=== PATIENT | female | born 1940 | race Caucasian/White ===

== ENCOUNTER 2020-11-16 10:53 | Day surgery (SDCO) | payer OTHER ==
[~2020-11-16] VITALS: Ht 165.1 cm; Wt 61.9 kg
[~2020-11-16 10:53] MED LIST: ASPIRIN EC81 MG PO; DUONEB 2.5-0.5M1 AMP INH; LIPITOR40 M1 PO; TOPROL XL 25MG25 MG PO; VENTOLIN HFA IN18 GM INH
[2020-11-16 13:07] LABS: BASOPHIL 0.9 % (0-2); EOSINOPHIL 1.1 % (0-7); HCT 40.8 % (37.0-47.0); HGB 13.3 g/dl (12.5-16.0); LYMPHOCYTE 25.9 % (15-48); MCH 30.3 pg (25.0-31.0); MCHC 32.6 g/dL (32.0-36.0); MCV 92.9 fL (78.0-100.0); MONOCYTE 9.8 % (0-12); MPV 10.6 fL (6.0-9.5); NEUTROPHIL 62.2 % (41-80); NRBC 0; PLT 195 K/uL (150-400); RBC 4.39 M/uL (4.20-5.40); RDW 12.8 % (11.5-14.0); WBC 7.8 K/uL (4.0-10.5)
[2020-11-16 13:38] LABS: ALBUMIN 3.7 g/dL (3.4-5.0); BILIRUBIN - TOTAL 0.8 mg/dL (0.2-1.0); BUN/CREAT RATIO (CALC) 14.9 RATIO; CREATININE 0.94 mg/dL (0.51-0.95); GLOBULIN (CALCULATION) 3.1 g/dL; POTASSIUM 4.7 mmol/L (3.5-5.1); TOTAL PROTEIN 6.8 g/dL (6.4-8.2)
[2020-11-16 14:07] LABS: BILIRUBIN NEGATIVE (NEGATIVE); BLOOD TRACE-INTACT Ery/uL (NEGATIVE); CLARITY CLEAR (CLEAR); COLOR YELLOW (YELLOW); GLUCOSE (U) NORMAL (NORMAL); LEUKOCYTES NEGATIVE Leu/uL (NEGATIVE); NITRITE NEGATIVE (NEGATIVE); PROTEIN NEGATIVE (NEGATIVE); SPECIFIC GRAVITY 1.015 (1.001-1.030); UROBILINOGEN 0.2 mg/dL (0.2-1.0); pH 7.5 (5.0-9.0)
[2020-11-16 14:18] LABS: SQUAMOUS EPITHELIAL CELLS RARE; URINARY WBC RARE
[2020-11-16] MEDS ORDERED: PROTONIX 40MG T40 MG PO (17:55)
[2020-11-17] MEDS ORDERED: ELIQUIS5 MG PO (15:10)
== END 2020-11-17 16:10 | disposition home or self-care (01) ==
LOC: FER 10:53 → FMS 18:40
PROVIDERS: Physician Assistant; ADMIT Allergy & Immunology Allergy
DX: I48.0 Paroxysmal atrial fibrillation (principal); I25.10 Atherosclerotic heart disease of native coronary artery without angina pectoris; Z95.1 Presence of aortocoronary bypass graft; E78.5 Hyperlipidemia, unspecified; K21.9 Gastro-esophageal reflux disease without esophagitis; Z90.49 Acquired absence of other specified parts of digestive tract; Z79.82 Long term (current) use of aspirin; I73.9 Peripheral vascular disease, unspecified; Z20.822 Contact with and (suspected) exposure to COVID-19; I11.9 Hypertensive heart disease without heart failure; I34.0 Nonrheumatic mitral (valve) insufficiency
CPT/HCPCS: 36415; 71045; 80053; 81001; 84443; 84484; 85025; 93005; G0378; Q9967; U0002

== ENCOUNTER 2020-12-10 08:51 | Emergency (ER) | payer OTHER ==
[~2020-12-10 08:51] MED LIST changes: +ELIQUIS5 MG PO; +PROTONIX 40MG T40 MG PO
[2020-12-10 09:31] LABS: BASOPHIL 0.7 % (0-2); EOSINOPHIL 1.5 % (0-7); HCT 40.9 % (37.0-47.0); HGB 13.5 g/dl (12.5-16.0); LYMPHOCYTE 30.1 % (15-48); MCH 30.3 pg (25.0-31.0); MCV 91.9 fL (78.0-100.0); MONOCYTE 11.5 % (0-12); MPV 10.3 fL (6.0-9.5); NRBC 0; PLT 219 K/uL (150-400); RBC 4.45 M/uL (4.20-5.40); RDW 13.1 % (11.5-14.0); WBC 8.2 K/uL (4.0-10.5)
[2020-12-10 09:42] LABS: INR 1.33 (0.9-1.2); PROTHROMBIN TIME 15.8 SECONDS (11.8-13.4); PTT 37.4 SECONDS (24.4-34.7)
[2020-12-10 09:54] LABS: ALBUMIN 3.8 g/dL (3.4-5.0); BILIRUBIN - TOTAL 0.6 mg/dL (0.2-1.0); BUN/CREAT RATIO (CALC) 17.6 RATIO; CREATININE 0.91 mg/dL (0.51-0.95); GLOBULIN (CALCULATION) 3.3 g/dL; POTASSIUM 3.7 mmol/L (3.5-5.1); TOTAL PROTEIN 7.1 g/dL (6.4-8.2)
[2020-12-10] MEDS ORDERED: ANTIVERT12.5 MG PO (10:19)
[2020-12-10] MEDS ORDERED: ONDANSETRON ODT4 MG PO (10:19)
[2020-12-10 10:40] LABS: CORONAVIRUS 2019 SARS-COV-2 NEGATIVE (NEGATIVE); INFLUENZA A NAA NEGATIVE (NEGATIVE)
== END 2020-12-10 11:06 | disposition home or self-care (01) ==
LOC: FER 08:51
PROVIDERS: Internal Medicine
DX: R07.89 Other chest pain (principal); R42 Dizziness and giddiness; R11.0 Nausea; I10 Essential (primary) hypertension; I48.91 Unspecified atrial fibrillation; K21.9 Gastro-esophageal reflux disease without esophagitis; Z95.1 Presence of aortocoronary bypass graft; Z87.891 Personal history of nicotine dependence; Z79.01 Long term (current) use of anticoagulants; Z79.82 Long term (current) use of aspirin; Z79.899 Other long term (current) drug therapy; Z20.822 Contact with and (suspected) exposure to COVID-19
CPT/HCPCS: 36415; 70450; 71045; 80053; 84484; 85025; 85610; 85730; 93005; U0002